=== PATIENT | female | born 1990 | race Caucasian/White ===

== ENCOUNTER 2021-02-19 13:20 | Outpatient (CLI) | payer OTHER, SELFPAY ==
--- NOTE | ~2021-02-19 | US_ITS ---
EXAMINATION: US pelvic complete w TV EXAM DATE: 02/19/2021 13:55 INDICATION: Right ovarian cyst seen on outside CT one-2 weeks ago. TECHNIQUE: Pelvic transabdominal and transvaginal sonogram was performed. There are multiple graysca le and Doppler images available for interpretation. There is no prior study for comparison. FINDINGS: Uterus is not identified. No free pelvic fluid. Right adnexa: The ovary measures 6.4 x 3.5 x 3.6 cm, with a complex cystic lesion measuring 3.9 x 3.5 x 3.5 cm, fishnet appearance is most consistent with a hemorrhagic cyst. No internal vascularity dem onstrated within this complex cystic region. Differential diagnosis includes endometrioma, teratoma, other cystic ovarian neoplasm. Ovarian vascular flow confirmed. Left adnexa: The ovary measures 2.7 x 1.4 x 1.7 cm and is morphologically normal. Ovarian vascular fl ow confirmed. IMPRESSION: Right ovarian complex cystic lesion most likely hemorrhagic cyst. Follow-up pelvic sonogr am in 6-12 weeks recommended to exclude cystic ovarian neoplasm. Reviewed, dictated and finalized at location A. IMPRESSION: Right ovarian complex cystic lesion most likely hemorrhagic cyst. F ollow-up pelvic sonogram in 6-12 weeks recommended to exclude cystic ovarian ne oplasm.
== END 2021-02-19 13:21 | disposition home or self-care (01) ==
LOC: CHSIMG 13:23
PROVIDERS: PCP Family Medicine; Visit Provider Nurse Practitioner Psychiatric/Mental Health
DX: N83.201 Unspecified ovarian cyst, right side (principal)
CPT/HCPCS: 76830; 76856

== ENCOUNTER 2023-01-30 08:24 | Outpatient (CLI) | payer OTHER, SELFPAY ==
--- NOTE | ~2023-01-30 | US_ITS ---
EXAMINATION: US pelvic complete w TV DATE: 01/30/2023 09:03 INDICATION: Right-sided pelvic pain Comparison:Ultrasound dated 02/19/2021 TECHNIQUE: Multiple transabdominal and endovaginal sonographic images of the pelvis performed. FINDINGS: The uterus is surgically absent. The ovaries are not visualized. There is no free fluid in the pelvis. There are no abnormal masses seen on either side. IMPRESSION: 1. Unremarkable pelvic ultrasound. Reviewed, dictated and finalized at location L.
== END 2023-01-30 08:25 | disposition home or self-care (01) ==
LOC: CHSIMG 08:27
PROVIDERS: PCP Family Medicine; Visit Provider Family Medicine
DX: R10.2 Pelvic and perineal pain (principal)
CPT/HCPCS: 76830; 76856

== ENCOUNTER 2024-09-09 07:56 | Outpatient (CLI) | payer OTHER, SELFPAY ==
--- NOTE | ~2024-09-09 | US_ITS ---
EXAMINATION: US transvaginal DATE: 09/09/2024 08:34 INDICATION: Cyst of ovary. TECHNIQUE: Multiple transvaginal sonographic images of the pelvis were obtained. COMPARISON: Ultrasound 01/30/2023 FINDINGS: The uterus is absent. There is no free fluid in the pelvis. The ovaries are not visualized. IMPRESSION: 1. Ovaries not visualized. 2. Absent uterus. Reviewed, dictated and finalized at location A. [employer]
--- OUTSIDE RECORDS SUMMARY | 2024-09-09 08:06 | XMS_ITS | Clinical Summary ---
Author Organization [facility] Address [address] [place] [address]. [place], [place] [id number] [place] [address] Care Team Providers Care Project Management Professor Name Role Phone Terrence Oliver MD Primary Care Provider [phone] Allergies Active Allergy Reactions Criticality Noted Date Comments Codeine Chest pressure 02/08/2021 Medications No known medications Social History Tobacco Use Types Packs/Day Years Used Date Smoking Tobacco: Every Day Cigarettes Smokeless Tobacco: Never Alcohol Use Standard Drinks/Week Comments Never 0 (1 standard drink = 0.6 oz pur e alcohol) AUDIT-C Answer Date Recorded Q1: How often do you have a drink containing alc ohol? 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 Gender Identity Not on file Sexual Orientation Not on file Last Filed Vital Signs Vital Sign Reading Time Taken Comments Blood Pressure 117/61 10/10/2022 11:30 AM LEATHER GOODS ASSEMBLER Pulse 56 10/10/2022 11:30 AM LEATHER GOODS ASSEMBLER Temperature 36.4 ??C (97.6 ??F) 10/10/2022 8:25 AM CS T Respiratory Rate 16 10/10/2022 11:30 AM LEATHER GOODS ASSEMBLER Oxygen Saturation 99% 10/10/2022 11:30 AM LEATHER GOODS ASSEMBLER Inhaled Oxygen Concentration - - Weight 59 kg (130 lb) 10/10/2022 8:25 AM LEATHER GOODS ASSEMBLER Height 160 cm (5' 3 ) 10/10/2022 8:25 AM LEATHER GOODS ASSEMBLER Body Mass Index 23.03 10/10/2022 8:25 AM LEATHER GOODS ASSEMBLER Plan of Treatment Health Maintenance Due Date Last Done Comments Annual Physical 1992 Pneumococcal Vaccine: Pediatrics (0 to 5 Years) and At-Risk Patients (6 to 64 Years) (1 of 2 - PCV) 1995 Hepatitis C 2007 DTaP, Tdap and Td Vaccines (1 - Tdap) 2008 12/02/1994, 01/26/1991, 10/19/1990, Additional history exists Hepatitis B Vaccines (1 of 3 - 19+ 3-dose series) 2008 COVID-19 Vaccine (1 - season) 2024 Influenza Adult (#1) 2024 HPV Vaccines Aged Out No longer eligi ble based on patient's age to complete this topic Meningococcal B Vaccine Aged Out No l onger eligible based on patient's age to complete this topic Meningococcal Vaccine Aged Out No tracy olga eligible based on patient's age to complete this topic RSV Immunizations Under 20 Months Aged Out No longer eligible based on patient's age to complete this topic [place] [address] [place] [address] Care Teams Project Management Professor Relationship Specialty Start Date End Date Terrence Oliver MD [address] [place] [phone] PCP - General FAMILY PRACTICE 02/08/21
--- OUTSIDE RECORDS SUMMARY | 2024-09-09 08:06 | XMS_ITS | Clinical Summary ---
Author Organization [facility] Address [address] [place] [address] Care Team Providers Care Construction Skills Teacher Name Role Phone Miscellaneous, Not In File Primary Care Provider Unavailable Allergies Active Allergy Reactions Criticality Noted Date Comments Codeine Chest tightness Medium 01/04/2022 Medications clobetasol (TEMOVATE) 0.05 % cream apply by topical route 2 times every day a thin layer to the affected area(s) 15 1 7 Active ibuprofen (ADVIL,MOTRIN) 600 mg tablet Take 1 tablet (600 mg total) by mouth 4 (four) times a day as needed for pain Take with food. 30 tablet 2 Active ondansetron ODT (ZOFRAN-ODT) 4 mg disintegrating tablet Dissolve 1 tablet for mild to moderate nausea or vomiting or 2 tablets for severe nausea or vomiting oral twice a day as needed. 15 tablet 2 Active Active Problems No known active problems Surgical History Surgery Date Site/Laterality Comments ESSURE TUBAL LIGATION 08/11/2011 - 08/10/2012 APPENDECTOMY 08/11/1996 - 08/10/1997 CERVICAL BIOPSY W/ LOOP ELECTRODE EXCISION 08/11/2014 - 08/10/2015 SMITH II on cervical biopsy: LEEP conization: SMITH III without clear margins LAPAROSCOPIC CHOLECYSTECTOMY 08/11/2010 - 08/10/2011 LAPAROSCOPIC TOTAL HYSTERECTOMY 08/11/2014 - 08/10/2015 with bilateral salpingectomy; done for cervical dysplasia HYSTERECTOMY partial age 23 Medical History Medical History Date Comments Chlamydia infection 2013 Exercise-induced asthma Abnormal Pap smear of cervix 2013 [facility] [place] on pap smear; SMITH I on biopsy Abnormal Pap smear of cervix 2014 SMITH II on cervical biopsy Abnormal Pap smear of cervix 2014 SMITH III of cervix without clear margins on LEEP Seasonal allergies Family History Medical History Relation Name Comments Hypertension Father Diabetes Maternal Grandfather Hypertension Maternal Grandfather Stroke Maternal Grandfather Ovarian cancer Mother Stroke Mother Relation Name Status Comments Father Maternal Grandfather Mother Social History Tobacco Use Types Packs/Day Years Used Date Smoking Tobacco: Heavy Smoker Cigarettes 1 20.1 Started: 2004 Smokeless Tobacco: Never Comments:Smoking History Pac ks/day: 0.5 Packs Alcohol Use Standard Drinks/Week Comments Yes 0 (1 standard drink = 0.6 oz pur e alcohol) social use Comments No Sex and Gender Information Value Date Recorded Sex Assigned at Not on file 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 Gender Identity Not on file Sexual Orientation Not on file Occupation Industry Job Start Date Job End Date sales Not on file Not on file Not on file Obstetrics History Para Term AB IAB SAB Ectopic Multiple Livin g Live Births 2 2 2 0 0 0 0 0 0 2 2 Date Outcome GA Total Labor Labor/2nd/3rd Weight Sex Type Anes PTL Chelita A1 A5 Name Clin Term Term Last Filed Vital Signs Vital Sign Reading Time Taken Comments Blood Pressure 117/55 01/04/2022 10:00 PM CDT Pulse 69 01/04/2022 10:00 PM CDT Temperature 37.1 ??C (98.7 ??F) 01/04/2022 2:45 PM CD T Respiratory Rate 18 01/04/2022 2:45 PM CDT Oxygen Saturation 97% 01/04/2022 10:00 PM CDT Inhaled Oxygen Concentration - - Weight 77.1 kg (170 lb) 01/04/2022 2:45 PM CDT Height 162.6 cm (5' 4 ) 11/20/2016 8:50 AM CDT Body Mass Index 29.18 11/20/2016 8:50 AM CDT Plan of Treatment Health Maintenance Due Date Last Done Comments Depression Screening 1989 Pneumococcal vaccine <65 (1 of 2 - PCV) 1995 DTaP/Tdap/Td Vaccine (1 - Tdap) 2000 Varicella Vaccines (1 of 2 - 13+ 2-dose series) 2002 Hepatitis B Screening 2007 Regular Well Visit/Exam 18-64 2007 Influenza Vaccine (#1) 2024 Cervical Cancer Screening Discontinued 2016, 07/30/2013 Hepatitis C Screening Completed 01/04/2022 HPV Vaccines Aged Out No longer eligi ble based on patient's age to complete this topic Procedures Procedure Name Priority Date/Time Associated Diagnosis Comments HEPATITIS PANEL, ACUTE Add-On 01/04/2022 9:52 PM CDT THINPREP IMAGING PAP REFLEX HPV MRNA E6/E7 Routine 11/20/2016 10:54 AM CDT from Last 3 Months or Most Recently Relevant to Health Maintenance Results * Hepatitis panel, acute (01/04/2022 9:52 PM CDT) Hep A IgM Nonreactive Nonreactive [facility] ([place]) Comment: Interpretive Data: If Hep A IgM Ab is reported as Equivocal, a new sample should be drawn in two weeks for testing. Current interpretive data was last revised on 19. Testing performed by: [facility], [address] [place] [address]., [id number] Hep B core IgM Nonreactive Nonreactive [facility] ([place]) Comment: Interpretive Data If HepB Core IgM Ab is reported as Equivocal, a new sample should be drawn in two weeks for testing. Current interpretive data was last revised on 19. Testing performed by: [facility], [address] [place] [address]., [id number] Hep C Ab Nonreactive Nonreactive [facility] ([place]) Comment: Interpretive Data Nonreactive: Antibodies to HCV not detected. Does NOT exclude the possibility of recent exposure to HCV. Equivocal: Equivocal for HCV antibodies. Supplemental molecular testing will be automatically performed to determine infection status in accordance with current CDC screening recommendations. ?? Reactive: Positive for HCV antibodies. ??This may represent current or past HCV infection. Supplemental molecular testing will be automatically performed to determine ??current infection status in accordance with current CDC screening recommendations. Interpretive data was last revised on 2019. Testing performed by: [facility], [address] [place] [address]., [id number] HepBsAg Nonreactive Nonreactive [facility] ([place]) Comment:Testing performed by : [facility] [id number] [place]., [address] Blood 01/04/2022 9:52 PM CDT 01/05/2022 1:52 PM CDT us Marlys Armendariz MD LAB MICROBIOLOGY - GENERAL ORDERABLES Final Result [facility] ([place]) 1 [facility] [place] [address] * ThinPrep Imaging Pap Reflex HPV mRNA E6/E7 (11/20/2016 10:54 AM CDT) SOURCE: SEE NOTE [facility] Comment:Vagina CLINICAL INFORMATION: SEE NOTE [facility] Comment: High risk HPV Hx/Rx Hysterectomy, total LMP SEE NOTE [facility] Comment:NONE GIVEN Previous Pap SEE NOTE [facility] RESULTS Comment:NONE GIVEN Prev. Bx SEE NOTE [facility]ULTS Comment:NONE GIVEN Pap, specimen adequacy SEE NOTE [facility] Comment:SATISFACTORY FOR TOREY LUATION HPV interp SEE NOTE [facility] Comment:Negative for intraep ithelial lesion or malignancy. Lactobacillus species SEE NOTE [facility] Comment: This Pap test has been evaluated with computer assisted technology. System Administration Manager SEE NOTE [facility] RESULTS Comment: MVB, CT(ASCP) CT screening location: [address] [place] ? [address] Review senior project architect SEE NOTE [facility] RESULTS Comment: ABC, CT(ASCP) CT screening location: [address] [place] [address] Test performed at [facility] ??[phone] Director: WAGNER TOBAR MD Infection: SEE NOTE [facility] RESULTS Comment: Fungal organisms morphologically consistent with Deanne spp. 11/20/2016 10:5 4 AM CDT us Jennifer Lagunas MD LAB PATHOLOGY ORDER MARRY Final Result [facility] RES[facility] from Last 3 Months or Most Recently Relevant to Health Maintenance Insurance Care Teams Construction Skills Teacher Relationship Specialty Start Date End Date Miscellaneous, Not In File PCP - General 01/04/22
--- OUTSIDE RECORDS SUMMARY | 2024-09-09 08:06 | XMS_ITS | Encounter Summary ---
Author Organization [facility] Address [address] [place] [address]. 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
--- OUTSIDE RECORDS SUMMARY | 2024-09-09 08:07 | XMS_ITS | Referral Summary ---
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 Gender Identity Not on file Sexual Orientation Not on file Occupation Industry Job Start Date Job End Date sales Not on file Not on file Not on file Last Filed Vital Signs [...] 11/20/2016 8:50 AM CDT Plan of Treatment Not on file Procedures Procedure Name Priority Date/Time Associated Diagnosis Comments HEPATITIS PANEL, ACUTE Add-On 01/04/2022 9:52 PM CDT THINPREP IMAGING PAP REFLEX HPV MRNA E6/E7 Routine 11/20/2016 10:54 AM CDT from Last 3 Months or Most Recently Relevant to Health Maintenance Results * Hepatitis panel, acute (01/04/2022 9:52 PM CDT) Hep A IgM Nonreactive Nonreactive [facility] ([place]) Comment: Interpretive Data: If Hep A IgM Ab is reported as Equivocal, a new sample should be drawn in two weeks for testing. Current interpretive data was last revised on 19. Testing performed by: [facility], [address] [place] [address]., [id number] Hep B core IgM Nonreactive Nonreactive [facility] ([place]) Comment: Interpretive Data If HepB Core IgM Ab is reported as Equivocal, a new sample should be drawn in two weeks for testing. Current interpretive data was last revised on 19. Testing performed by: [facility], [address] [place] [address]., [id number] Hep C Ab Nonreactive Nonreactive [facility] ([place]) Comment: Interpretive Data Nonreactive: Antibodies to [...] last revised on 2019. Testing performed by: [facility], [address] [place] [address]., [id number] HepBsAg Nonreactive Nonreactive [facility] ([place]) Comment:Testing performed by : [facility], [address] [place] [address]., [id number] Blood 01/04/2022 9:52 PM CDT 01/05/2022 1:52 PM CDT us Marlys Armendariz MD LAB MICROBIOLOGY - GENERAL ORDERABLES Final Result [facility] ([place]) 1 [facility] Department [place] [address] * ThinPrep Imaging Pap Reflex HPV mRNA [...] has been evaluated with computer assisted technology. Rand Sewer SEE NOTE [facility] RESULTS Comment: [facility], CT(ASCP) CT screening location: [place] [address] Administration [place] ? [address] Review truck driver flatbed SEE NOTE [facility] RESULTS Comment: ABC, CT(ASCP) CT screening location: [address] [place] [address] Test performed at [facility] ??[phone] Director: WAGNER TOBAR MD Infection: SEE NOTE [facility] Comment: Fungal organisms morphologically consistent with Deanne spp. 11/20/2016 10:5 4 AM CDT Jennifer Lagunas MD LAB PATHOLOGY ORDER MARRY Final Result [facility] RESULTS from Last 3 Months or Most Recently Relevant to Health Maintenance Insurance Care Teams Operations Supervisor 2Nd Shift Relationship Specialty Start Date End Date Miscellaneous, Not In File PCP - General 01/04/22
[2024-09-09 08:18] LABS: Basophils Absolute Auto 0.05 K/mm3 (0.00-0.10); Eosinophils Absolute Auto 0.06 K/mm3 (0.02-0.50); Eosinophils Percent Auto 1.2 % (1.0-6.0); Hematocrit 45.2 % (35.0-49.0); Immature Granulocyte Absolute 0.01 K/mm3 (0.00-0.00); Immature Granulocyte Percent A 0.2 % (0.0-0.0); Lymphocytes Absolute Auto 1.11 K/mm3 (1.10-4.50); Lymphocytes Percent Auto 22.1 % (18.0-42.0); Mean Corpuscular HGB Conc 33.2 g/dL (32-36); Mean Corpuscular Hemoglobin 30.5 pg (27.0-31.0); Mean Corpuscular Volume 92.1 fL (78.0-102.0); Mean Platelet Volume 10.5 fl (9.2-11.8); Monocytes Percent Auto 9.9 % (2.0-11.0); Neutrophils Percent Auto 65.6 % (50.0-70.0); Platelet Count Result 245 K/mm3 (150-420); Red Blood Count 4.91 M/mm3 (4.20-5.40); Red Cell Distribution Width 11.9 % (11.6-14.4)
[2024-09-09 09:00] LABS: Alanine Aminotransferase 28 U/L (14-59); Albumin Level 3.8 g/dL (3.4-5.0); Alkaline Phosphatase 63 U/L (46-116); Anion Gap 6 mmol/L (4-12); Aspartate Amino Transferase 26 U/L (15-37); Bilirubin,Total 0.4 mg/dL (0.00-1.00); Blood Urea Nitrogen 5 mg/dL (7-18); Calcium 8.9 mg/dL (8.5-10.1); Carbon Dioxide 28 mmol/L (21-32); Chloride 106 mmol/L (98-108); Estimated Glomerular Filt Rate > 60; Glucose 84 mg/dL (70-99); Osmolality Calculated 286 mOsm/kg (285-295); Potassium 3.9 mmol/L (3.5-5.1); Sodium 140 mmol/L (136-145); Total Protein 6.8 g/dL (6.4-8.2)
[2024-09-10 07:58] LABS: Free T3 2.88 pg/mL (2.18-3.98)
[2024-09-11 04:24] LABS: Sex Hormone Binding Globulin 155 nmol/L (17-124)
[2024-09-11 06:33] LABS: T4 Thyroxine 7.9 mcg/dL (5.1-11.9)
[2024-09-11 06:39] LABS: DHEA-Sulfate 165 mcg/dL (19-237); FSH 7.1 mIU/mL; Vitamin D 25 Hydroxy 20 ng/mL (30-100)
== END 2024-09-09 07:57 | disposition home or self-care (01) ==
LOC: CHSLAB 08:02
PROVIDERS: PCP Registered Nurse; Visit Provider Registered Nurse
DX: R79.89 Other specified abnormal findings of blood chemistry (principal); E55.9 Vitamin D deficiency, unspecified; Z90.710 Acquired absence of both cervix and uterus
CPT/HCPCS: 36415; 76830; 80053; 82306; 82627; 82670; 83001; 84270; 84402; 84403; 84436; 84443; 84480; 84481; 85025

== ENCOUNTER 2025-01-19 21:16 | Emergency (ER) | payer OTHER, SELFPAY ==
--- NOTE | ~2025-01-19 | XR_ITS ---
XR foot RT min 3V Ordering provider: Joe Luna MD History: . 1/2 weeks. This toes bruising . Comparison: None. FINDINGS: BONES: No acute fracture or dislocation. JOINT SPACES: Normal. No tarsal coalition. SOFT TISSUES: Normal. IMPRESSION: No acute osseous abnormality of the right foot. Reviewed, dictated and finalized at location A.
--- OUTSIDE RECORDS SUMMARY | 2025-01-19 21:17 | XMS_ITS | Clinical Summary ---
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 Gender Identity Not on file Sexual Orientation [...] 69 01/04/2022 10:00 PM CDT Temperature 37.1 C (98.7 F) 01/04/2022 2:45 PM CDT Respiratory Rate 18 01/04/2022 2:45 PM CDT Oxygen Saturation 97% 01/04/2022 10:00 PM CDT Inhaled Oxygen Concentration - - Weight 77.1 kg (170 lb) 01/04/2022 2:45 PM CDT Height 162.6 cm (5' 4) 11/20/2016 8:50 AM CDT Body Mass Index 29.18 11/20/2016 8:50 AM CDT Plan of Treatment Not on file Insurance [facility] [place] [address] [place] [address] Care Teams Director Digital Catalogue Relationship Specialty Start Date End Date Miscellaneous, Not In File PCP - General 01/04/22
[2025-01-19 21:18] VITALS: BP 135/74; PULSE 82; RESP 18; TEMP 36.5; O2SAT 99
--- OUTSIDE RECORDS SUMMARY | 2025-01-19 21:18 | XMS_ITS | Referral Summary ---
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
--- NOTE | 2025-01-19 21:24 | ED_ITS ---
HPI - Extremity Injury (Lower) General Chief Complaint: Extremity Injury, Lower Stated Complaint: lower extremity injury Time Seen by Provider: 01/19/25 21:23 Source: patient Mode of arrival: ambulatory Limitations: no limitations History of Present Illness HPI Narrative: 34 old female was on a water slide when her right foot slipped forwards. She sustained bruising of the 1st/ 2nd/ 3rd toes. She presents with pain and swelling of the 1st and 2nd toes. She is able to bear weight. No other injuries noted. complaint: foot injury Onset (ago): day(s) ( One day) Injury: Right: foot Type of Injury: hyperextension Place: street/outdoors Severity: mild Relieving factors: nothing Exacerbating factors: nothing Other symptoms: none Related Data Home Medications ?Medication ?Instructions ?Recorded ?Confirmed ?Last Taken ?Type No Home Medications 01/19/25 01/19/25 Unknown History Allergies Allergy/AdvReac Type Severity Reaction Status Date / Time codeine Allergy palpitation Verified 01/19/25 21:33 Review of Systems Review of Systems: All systems reviewed & are unremarkable except as noted in HPI and below [facility] Surgical History Surgical History (Updated 01/19/25 @ 21:28 by Joe Luna MD) H/O: hysterectomy Exam Narrative: vitals are stable Const: General: no acute distress Orientation/consciousness: patient oriented x3 Limitations: no limitations HENMT: Head: normal to inspection Ears: external ears normal Face/Nose/Sinus: Normal external nose present Face and sinus: normal facial exam Mouth: Yes Normal oral and palatal mucosa present Throat: posterior oropharynx normal Eyes: Conjunctivae: conjunctivae normal Pupils: Equal, round and reactive pupils present EOM: EOMs intact bilaterally Direct Ophthalmoscopy: no photophobia Neck: Neck: normal visual inspection, no lymphadenopathy and no meningeal signs Chest: Chest palpation & inspection: normal inspection of the chest Resp: Effort & Inspection: normal respiratory effort Auscultation: clear to auscultation bilaterally Cardio: Rate: regular rate Rhythm: regular rhythm GI: GI Palp: Yes Soft to palpation Auscultation: normal bowel sounds : General: Yes no CVA tenderness Back/Spine/Pelvis: Back: no CVA tenderness Skin: General skin exam: normal color Rashes: no rashes Neuro: General: patient oriented x3, moves all extremities, no meningeal signs, no focal motor deficits and CN's II-XI intact bilaterally Speech: normal speech Extrem: Other: right foot-- 1st, 2nd and 3rd toes swelling with bruising. tender on pal pation. No tenderness of MP joints. Psych: Mental Status: mental status grossly normal Affect: normal affect Attitude: cooperative Course Course Emergency Course: bruising of the 1st/2nd/3rd toes of the right leg. X-ray did not show any fracture/dislocation. Vital Signs Vital signs: Vital Signs Temperature 36.5 C 01/19/25 21:18 Pulse Rate 82 01/19/25 21:18 Respiratory Rate 18 01/19/25 21:18 Blood Pressure 135/74 01/19/25 21:18 Pulse Oximetry 99 01/19/25 21:18 Oxygen Delivery Room Air 01/19/25 21:18 Temperature 36.5 C 01/19/25 21:18 Pulse Rate 82 01/19/25 21:18 Respiratory Rate 18 01/19/25 21:18 Blood Pressure 135/74 01/19/25 21:18 Pulse Oximetry 99 01/19/25 21:18 Oxygen Delivery Room Air 01/19/25 21:18 MDM - Extremity Injury (Lower) MDM Narrative Medical decision making narrative: Contusion of right foot toes Differential Diagnosis Differential diagnosis: Likely ankle sprain and strain Lab Data Attestation: I reviewed the patient's lab results. Discharge Plan Discharge Clinical Impression: Contusion, toes Qualifiers: Encounter type: initial encounter Toe: great toe Damage to nail status: without damage Laterality: right Qualified Code(s): S90.111A - Contusion of right great toe without damage to nail, initial encounter Patient Disposition: Home Condition: Stable Instructions: Antibiotic Form, Foot Contusion (ED) Patient Language: Pashto Prescriptions: No Action No Home Medications Follow-up/Referrals: Benito,MD Terrence [Primary Care Provider] - Time of Disposition: 22:10
--- OUTSIDE RECORDS SUMMARY | 2025-01-19 22:04 | XMS_ITS | Clinical Summary ---
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
--- OUTSIDE RECORDS SUMMARY | 2025-01-19 22:04 | XMS_ITS | Referral Summary ---
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
[2025-01-19] MEDS: TETANUS,DIPHTHERIA,AC PERTUSSIS ADULT 0.5 ML (ADACEL) IM (22:16)
== END 2025-01-19 22:25 | disposition home or self-care (01) ==
PROVIDERS: Emergency Provider Internal Medicine Critical Care Medicine; PCP Family Medicine
DX: S90.111A Contusion of right great toe without damage to nail, initial encounter (principal); Z23 Encounter for immunization; X50.0XXA Overexertion from strenuous movement or load, initial encounter
CPT/HCPCS: 73630; 90471; 90715; 99283

== ENCOUNTER 2025-02-21 11:02 | Outpatient (CLI) | payer OTHER, SELFPAY ==
--- OUTSIDE RECORDS SUMMARY | 2025-02-21 11:15 | XMS_ITS | Referral Summary ---
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
--- OUTSIDE RECORDS SUMMARY | 2025-02-21 11:15 | XMS_ITS | Clinical Summary ---
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
[2025-02-21 11:42] LABS: Hematocrit 45.9 % (35.0-49.0); Hemoglobin 15.3 g/dL (12.0-15.0); Immature Granulocyte Percent A 0.2 % (0.0-0.0); Lymphocytes Absolute Auto 1.56 K/mm3 (1.10-4.50); Mean Corpuscular HGB Conc 33.3 g/dL (32-36); Mean Corpuscular Hemoglobin 30.9 pg (27.0-31.0); Mean Corpuscular Volume 92.7 fL (78.0-102.0); Nucleated Red Blood Cells Absolute Auto 0.00 K/mm3 (0.00-0.00); Nucleated Red Blood Cells Perc 0.0 % (0-0.0); Platelet Count Result 276 K/mm3 (150-420); Red Blood Count 4.95 M/mm3 (4.20-5.40); White Blood Count 5.3 K/mm3 (4.8-10.8)
[2025-02-21 12:28] LABS: Alanine Aminotransferase 23 U/L (6-35); Albumin Level 3.7 g/dL (3.5-5.1); Alkaline Phosphatase 60 U/L (38-126); Anion Gap 0 mmol/L (4-12); Aspartate Amino Transferase 35 U/L (14-36); Bilirubin,Total 0.6 mg/dL (0.2-1.3); Blood Urea Nitrogen 6 mg/dL (7-17); Calcium 9.2 mg/dL (8.4-10.2); Carbon Dioxide 28 mmol/L (22-30); Chloride 109 mmol/L (98-107); Cholesterol 158 mg/dL (0-200); Estimated Glomerular Filt Rate > 60; Glucose 92 mg/dL (65-110); HDL Direct 52 mg/dL; Osmolality Calculated 281 mOsm/kg (285-295); Potassium 4.4 mmol/L (3.4-5.0); Sodium 137 mmol/L (137-145); Total Protein 6.3 g/dL (6.3-8.2); Triglycerides 125 mg/dL (<150)
[2025-02-21 12:51] LABS: Thyroid Stimulating Hormone 0.624 uIU/mL (0.465-4.680)
[2025-02-21 13:26] LABS: Vitamin B12 817.0 pg/mL (239-931)
== END 2025-02-21 11:03 | disposition home or self-care (01) ==
PROVIDERS: PCP Registered Nurse; Visit Provider Registered Nurse
DX: E55.9 Vitamin D deficiency, unspecified (principal); Z13.220 Encounter for screening for lipoid disorders; R53.83 Other fatigue
CPT/HCPCS: 36415; 80053; 80061; 82306; 82607; 82746; 84443; 85025

== ENCOUNTER 2025-05-28 10:08 | Outpatient (CLI) | payer OTHER, SELFPAY ==
--- OUTSIDE RECORDS SUMMARY | 2025-05-28 10:12 | XMS_ITS | Clinical Summary ---
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
--- OUTSIDE RECORDS SUMMARY | 2025-05-28 10:12 | XMS_ITS | Clinical Summary ---
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 Gender Identity Not on file Sexual Orientation Not on file Last Filed Vital Signs Vital Sign Reading Time Taken Comments Blood Pressure 117/61 10/10/2022 11:30 AM INSTRUCTIONAL TECHNOLOGY FACILITATOR Pulse 56 10/10/2022 11:30 AM INSTRUCTIONAL TECHNOLOGY FACILITATOR Temperature 36.4 C (97.6 F) 10/10/2022 8:25 AM INSTRUCTIONAL TECHNOLOGY FACILITATOR Respiratory Rate 16 10/10/2022 11:30 AM INSTRUCTIONAL TECHNOLOGY FACILITATOR Oxygen Saturation 99% 10/10/2022 11:30 AM INSTRUCTIONAL TECHNOLOGY FACILITATOR Inhaled Oxygen Concentration - - Weight 59 kg (130 lb) 10/10/2022 8:25 AM INSTRUCTIONAL TECHNOLOGY FACILITATOR Height 160 cm (5' 3) 10/10/2022 8:25 AM INSTRUCTIONAL TECHNOLOGY FACILITATOR Body Mass Index 23.03 10/10/2022 8:25 AM INSTRUCTIONAL TECHNOLOGY FACILITATOR Plan of Treatment Health Maintenance Due Date Last Done Comments Annual Physical 1992 Hepatitis C 2007 DTaP, Tdap and Td Vaccines (1 - Tdap) 2008 12/02/1994, 01/26/1991, 10/19/1990, Additional history exists Hepatitis B Vaccines (1 of 3 - 19+ 3-dose series) 2008 Pneumococcal Vaccine: Pediatrics (0 to 5 Years) and At-Risk Patients (6 to 49 Years) (1 of 2 - PCV) 2008 HPV Vaccines (1 - 3-dose SCDM series) 2016 COVID-19 Vaccine (1 - season) 2025 Influenza Adult (#1) 2025 Hepatitis A Vaccines Aged Out No long er eligible based on patient's age to complete this topic Meningococcal B Vaccine Aged Out No l onger eligible based on patient's age to complete this topic Meningococcal Vaccine Aged Out No tracy olga eligible based on patient's age to complete this topic RSV Immunizations Under 20 Months Aged Out No longer eligible based on patient's age to complete this topic [place] [address] [place] [address] Care Teams Problem Manager Relationship Specialty Start Date End Date Terrence Oliver MD [address] [place] [id number] PCP - General FAMILY PRACTICE 02/08/21
--- OUTSIDE RECORDS SUMMARY | 2025-05-28 10:12 | XMS_ITS | Data Portability ---
Author Organization [facility] ARCHIELobito Address [address] [place] [address] Care Team Providers Care Executive Sales Assistant Name Role Phone SAW REYES Primary Care Provider [phone] Assessment No assessment recorded. Plan of Treatment Reminders Order Date Submit Date Provider Last Modified By Organization Details Last Modified Time Details Appointments None recorded. Lab CBC 2016 017 [facility], [address] [place] [address], [facility] [address], [place], [address], 7 07:14:26 CMP, serum or plasma 2016 017 [facility], [address] [facility], [address], [place], [address], 7 07:14:26 lipid panel, serum 2016 017 [facility], [address] [place] [address], [facility] [address], [place], [address], 7 07:14:27 TSH + free T4, serum 2016 017 [facility], [address] [facility], [address], [place], [address], 7 07:14:26 Referral None recorded. Procedures None recorded. Surgeries None recorded. Imaging holter monitor 2016 017 leah Driver (Radiology), [address] [facility], [address], 7 17:52:21 Medication Orders omeprazol e 40 mg capsule,d elayed release [address] [facility], [address] [place] [address], [address], 7 12:41:51 Keflex 500 mg capsule 2016 017 [facility], [address] [place] [address], [address], 7 11:14:54 ketorolac 60 mg/2 mL intramusc ular solution 2016 017 [facility] Not available 11:14:52 tramadol 50 mg tablet 2016 017 [facility], [address] [place] [address], [address], 7 11:14:49 Keflex 500 mg capsule 2016 017 [facility], [address] [place] [address], [address], 7 11:14:54 Patient TargetsNo targets recorded. Patient Instructions Encounter Date Encounter Id Patient Instructions Last Modified By Organization Details Last Modified Time 11/06/2016 [id number] sleep study, diagnostic* jnanney Not available 11/06/2016 11:04:32 11/12/2016 [id number] cardiac arrhythmia: care instructions Not available 11/12/2016 17:43:41 01/27/2017 [id number] abscessed tooth: care instructions [email or web address] Not available 01/27/2017 12:59:38 Reason for Referral None Reported. Results Created Date Observation Date Name Description Value Unit Range Abnormal Flag Note LastModifiedBy Organization Detail LastModifiedTime 11/07/19 17 11/07/2016 TSH + free T4, serum TSH 1.850 uIU/m L 0.450- 4.500 Not Available [facility] ([facility]) [address] [facility], [place], [address], 11/07/2016 07:14:26 11/07/19 17 11/07/2016 TSH + free T4, serum T4,free(dire ct) 1.08 NG/dL 0.82-1 .77 Not Available [facility] ([facility]) [address] [facility], [place], [address], 11/07/2016 07:14:26 11/07/19 17 11/07/2016 CBC WBC 4.9 x10e3 /uL 3.4-10 .8 Not Available [facility] ([facility]) [address] [facility] [place], [address], 11/07/2016 07:14:26 11/07/19 17 11/07/2016 CBC RBC 4.56 x10e6 /uL 3.77-5 .28 Not Available [facility] ([facility]) [address] [facility], [place], [address], 11/07/2016 07:14:26 11/07/19 17 11/07/2016 CBC hemoglobin 14.0 g/dL 11.1-1 5.9 Not Available [facility] ([facility]) [address] [facility], [place], [address], 11/07/2016 07:14:26 11/07/19 17 11/07/2016 CBC hematocrit 41.8 % 34.0-4 6.6 Not Available [facility] ([facility]) [address] [place], [address], 11/07/2016 07:14:26 11/07/19 17 11/07/2016 CBC MCV 92 fL 79-97 Not Available [facility] ([facility]) [address] [place], [address], 11/07/2016 07:14:26 11/07/19 17 11/07/2016 CBC MCH 30.7 pg 26.6-3 3.0 Not Available [facility] ([facility]) [address] [facility], [place], [address], 11/07/2016 07:14:26 11/07/19 17 11/07/2016 CBC MCHC 33.5 g/dL 31.5-3 5.7 Not Available [facility] ([facility] [address] [facility] [place], [address], 11/07/2016 07:14:26 11/07/19 17 11/07/2016 CBC RDW 13.1 % 12.3-1 5.4 Not Available [facility] ([facility]) [address], [place], [address], 11/07/2016 07:14:26 11/07/19 17 11/07/2016 CBC platelets 240 x10e3 /uL 150-37 9 Not Available [facility] ([facility]) [address] [facility], [place], [address], 11/07/2016 07:14:26 11/07/19 17 11/07/2016 CBC neutrophils 61 % Not Avai lable [facility] ([facility]) [address] [facility] [place], [address], 11/07/2016 07:14:26 11/07/19 17 11/07/2016 CBC lymphs 29 % Not Available [facility] ([facility]) [address] [facility], [place], [address], 11/07/2016 07:14:26 11/07/19 17 11/07/2016 CBC monocytes 9 % Not Availa ble [facility] ([facility]) [address] [facility] [place] [place], [address], 11/07/2016 07:14:26 11/07/19 17 11/07/2016 CBC eos 1 % Not Available [facility] ([facility]) [address] [facility] [place] [place], [address], 11/07/2016 07:14:11/07/19 17 11/07/2016 CBC basos 0 % Not Available [facility] ([facility]) [address] [facility], [place], [address], 11/07/2016 07:14:11/07/19 17 11/07/2016 CBC immature cells WILDLIFE MANAGEMENT PROFESSOR Not Available [facility] ([facility]) [address] [facility], [place], [address], 11/07/2016 07:14:11/07/19 17 11/07/2016 CBC neutrophils (absolute) 3.0 x10e3 /uL 1.4-7. 0 Not Available [facility] ([facility]) [address] [facility], [place], [address], 11/07/2016 07:14:11/07/19 17 11/07/2016 CBC lymphs (absolute) 1.4 x10e3 /uL 0.7-3. 1 Not Available [facility] ([facility]) [address] [facility], [place], [address], 11/07/2016 07:14:11/07/19 17 11/07/2016 CBC monocytes(ab solute) 0.4 x10e3 /uL 0.1-0. 9 Not Available [facility] ([facility]) [address] [facility], [place], [address], 11/07/2016 07:14:11/07/19 17 11/07/2016 CBC eos (absolute) 0.0 x10e3 /uL 0.0-0. 4 Not Available [facility] ([facility]) [address] [facility], [place], [address], 11/07/2016 07:14:11/07/1911/07/2016 CBC baso (absolute) 0.0 x10e3 /uL 0.0-0. 2 Not Available [facility] ([facility]) [address] [facility], [place], [address], 11/07/2016 07:14:11/07/19 17 11/07/2016 CBC immature granulocytes 0 % Not Available [facility] ([facility]) [address] [facility] [place], [address], 11/07/2016 07:14:11/07/19 17 11/07/2016 CBC immature grans (abs) 0.0 x10e3 /uL 0.0-0. 1 Not Available [facility] ([facility]) [address] [facility] [place], [address], 11/07/2016 07:14:11/07/19 17 11/07/2016 CBC NRBC WILDLIFE MANAGEMENT PROFESSOR Not Available [facility] ([facility]) [address] [place], [address], 11/07/2016 07:14:11/07/19 17 11/07/2016 CBC hematology comments: WILDLIFE MANAGEMENT PROFESSOR Not Available [facility] ([facility]) [address] [place], [address], 11/07/2016 07:14:11/07/19 17 11/07/2016 CMP, serum or plasm a glucose, serum 84 mg/dL 65-99 Not Available [facility] ([facility]) [address] [place], [address], 11/07/2016 07:14:11/07/19 17 11/07/2016 CMP, serum or plasm a BUN 7 mg/dL 6-20 Not Available [facility] ([facility]) [address] [place], [address], 11/07/2016 07:14:11/07/19 17 11/07/2016 CMP, serum or plasm a creatinine, serum 0.67 mg/dL 0.57-1 .00 Not Available [facility] ([facility]) [address] [place], [address], 11/07/2016 07:14:11/07/19 17 11/07/2016 CMP, serum or plasm a eGFR if nonafricn AM 121 mL/mi n/1.7 3 >59 Not Available [facility] ([facility]) [address] [place], [address], 11/07/2016 07:14:26 11/07/19 17 11/07/2016 CMP, serum or plasm a eGFR if africn AM 139 mL/mi n/1.7 3 >59 Not Available [facility] ([facility]) [address] [facility], [place], [address], 11/07/2016 07:14:26 11/07/19 17 11/07/2016 CMP, serum or plasm a BUN/creatini ne ratio 10 8-20 EFF ECTIV E NOVEMBER 11, 2016 BUN/C REATI NINE RATIO REFER ENCE INTER MEENA WILL BE POWLEL ING TO: AGE MALE FEMAL E 0 DAYS - 7 DAYS 9 - 25 9 - 26 8 DAYS - 30 DAYS 8 - 32 10 - 33 1 MONTH - 6 MONTH S 11 - 57 11 - 54 7 MONTH S - 1 YEAR - 71 20 - 71 2 YEARS - 5 YEARS 19 - 51 19 - 49 6 YEARS - 12 YEARS 14 - 34 13 - 32 13 YEARS - 17 YEARS 10 - 22 10 - 22 18 YEARS - 59 YEARS 9 - 20 9 - 23 >59 YEARS 10 - 24 12 - 28 Not Available [facility] ([facility]) [address] [facility], [place], [address], 11/07/2016 07:14:26 11/07/19 17 11/07/2016 CMP, serum or plasm a sodium, serum 141 mmol/ L 134-14 4 Not Available [facility] ([facility] [facility]) [address] [place], [address], 11/07/2016 07:14:26 11/07/19 17 11/07/2016 CMP, serum or plasm a potassium, serum 4.7 mmol/ L 3.5-5. 2 Not Available [facility] ([facility]) [address] [place], [address], 11/07/2016 07:14:11/07/19 17 11/07/2016 CMP, serum or plasm a chloride, serum 102 mmol/ L 96-106 Not Available [facility] ([facility]) [address] [facility] [place], [address], 11/07/2016 07:14:11/07/19 17 11/07/2016 CMP, serum or plasm a calcium, serum 9.8 mg/dL 8.7-10 .2 Not Available [facility] ([facility]) [address] [place], [address], 11/07/2016 07:14:11/07/19 17 11/07/2016 CMP, serum or plasm a protein, total, serum 6.9 g/dL 6.0-8. 5 Not Available [facility] ([facility]) [address] [facility] [place], [address], 11/07/2016 07:14:11/07/19 17 11/07/2016 CMP, serum or plasm a albumin, serum 4.4 g/dL 3.5-5. 5 Not Available [facility] ([facility]) [address] [facility] [place], [address], 11/07/2016 07:14:11/07/19 17 11/07/2016 CMP, serum or plasm a globulin, total 2.5 g/dL 1.5-4. 5 Not Available [facility] ([facility]) [address] [place], [address], 11/07/2016 07:14:11/07/19 17 11/07/2016 CMP, serum or plasm a A/G ratio 1.8 1.2-2. 2 PLE ASE NOTE REFER ENCE INTER MEENA POWELL E Not Available [facility] ([facility]) [address] [facility] [place], [address], 11/07/2016 07:14:11/07/19 17 11/07/2016 CMP, serum or plasm a bilirubin, total 0.4 mg/dL 0.0-1. 2 Not Available [facility] ([facility]) [address] [facility] [place], [address], 11/07/2016 07:14:26 11/07/19 17 11/07/2016 CMP, serum or plasm a alkaline phosphatase, S 59 IU/L 39-117 Not Available [facility] ([facility]) [address] [facility], [place], [address], 11/07/2016 07:14:26 11/07/19 17 11/07/2016 CMP, serum or plasm a AST (SGOT) 18 IU/L 0-40 Not Available [facility] ([facility]) [address] [facility] [place], [address], 11/07/2016 07:14:26 11/07/19 17 11/07/2016 lipid panel , serum cholesterol, total 157 mg/dL 100-19 9 Not Available [facility] ([facility]) [address] [facility], [place], [address], 11/07/2016 07:14:27 11/07/19 17 11/07/2016 lipid panel , serum triglyceride s 89 mg/dL 0-149 Not Available [facility] ([facility]) [address] [facility] [place], [address], 11/07/2016 07:14:27 11/07/19 17 11/07/2016 lipid panel , serum HDL cholesterol 61 mg/dL >39 Not Available [facility] ([facility]) [address] [facility] [place], [address], 11/07/2016 07:14:27 11/07/19 17 11/07/2016 lipid panel , serum VLDL cholesterol giovanny 18 mg/dL 5-40 Not Available [facility] ([facility]) [address] [facility] [place], [address], 11/07/2016 07:14:27 11/07/19 17 11/07/2016 lipid panel , serum LDL cholesterol calc 78 mg/dL 0-99 Not Available [facility] ([facility]) [address] [facility], [place], [address], 11/07/2016 07:14:27 11/07/19 17 11/07/2016 lipid panel , serum comment: WILDLIFE MANAGEMENT PROFESSOR Not Available [facility] ([facility]) [address] [facility], [place], [address], 11/07/2016 07:14:27 11/07/19 17 11/07/2016 lipid panel , serum LDL/HDL ratio 1.3 ratio _unit s 0.0-3. 2 LDL/H DL RATIO MEN WOMEN 1/2 AVG.R ISK 1.0 1.5 AVG.R ISK 3.6 3.2 2X AVG.R ISK 6.2 5.0 3X AVG.R ISK 8.0 6.1 Not Available [facility] ([facility]) [address] [facility], [place], [address], 11/07/2016 07:14:27 11/07/19 17 11/07/2016 cardi ovasc ular asses sment panel , serum interpretati on NOTE SUPPL EMENT REPOR T IS AVAIL ABLE. Not Available [facility] ([facility]) [address] [facility], [place], [address], 11/07/2016 07:14:27 11/07/19 17 11/07/2016 cardi ovasc ular asses sment panel , serum pdf image . Not Available [facility] ([facility]) [address] [facility], [place], [address], 11/07/2016 07:14:27 07/10/20 17 07/08/2017 XR, chest , 2 view No observ ation record ed. [email or web address] [address] , [place], [address], 07/10/2017 14:02:00 Result Notes None recorded. Problems Name Problem SNOMED Code Status Onset Date Resolution Date Notes Provider Name and Address Organization Details Recorded Time Pharyngitis 246332250 Active Dorothy Dia [place] null, [place] - [facility] 6 14:34:23 Impetigo 23576808 Active Dorothy Dia [place] [facility] 6 14:34:23 Multiple lumps 241843951 Active Dorothy D[place] [facility] 6 14:34:23 Cystic acne 86273360 Active Dorothy D[place], [place] [facility] 6 14:34:23 Upper respiratory infection 59237979 Active Dorothy D[place], [place] [facility] 6 14:34:23 Contact dermatitis 71832058 Active Saw Reyes PA-C Attn: Lorelei g,[address] [place], [address], [place] - [facility] 6 15:03:06 Eruption 399121010 Active Saw eRyes PA-C Attn: Accountin g,[address] [place], [address], [place] - [facility] 6 12:15:31 Problem Notes None recorded. Medical Equipment None Reported. Allergies No known drug allergies Medications Name Sig Start Date Stop Date Status Note LastModified by Organization Details LastModified Time Keflex 500 mg capsule Take 1 capsule every 8 hours by oral route as directed for 10 days. 07/11 completed Not Available Not Available Not Available Tamiflu 75 mg capsule Take 1 capsule twice a day by oral route for 5 days. 2016 active Not Available Not Available Not Avai lable omeprazole 40 mg capsule,del ayed release Take 1 capsule every day by oral route for 90 days. 2016 active Not Available Not Available Not Avai lable tramadol 50 mg tablet Take 1 tablet every 8 hours by oral route for 30 days. 07/11 completed Not Available Not Available Not Available Depo-Medrol 80 mg/mL suspension for injection Take 1 mL by injection route. 07/23 completed Not Available Not Available Not Available Tessalon Perles 100 mg capsule Take 1 capsule 3 times a day by oral route for 30 days. 2015 active Not Available Not Available Not Avai lable ceftriaxone 1 gram solution for injection Take 1 g by injection route. 2014 active Not Available Not Available Not Avai lable hydrocortis one 2.5 % topical cream APPLY A THIN LAYER TO THE AFFECTED AREA(S) BY TOPICAL ROUTE 2 TIMES PER DAY 07/23 completed Not Available Not Available Not Available ketorolac 60 mg/2 mL intramuscul ar solution Inject 2 mL by intramusc ular route. 07/11 completed Not Available Not Available Not Available Bactrim DS 800 mg-160 mg tablet Take 1 tablet every 12 hours by oral route for 10 days. 2014 active Not Available Not Available Not Avai lable Vitals Date Recorded Body height Body weight Body mass index (BMI) Oxygen saturation Oxygen saturation in Arterial blood by Pulse oximetry Heart rate Systolic And Diastolic Provider Name and Address Organization Details Last Updated DateTime 7 160.02 cm 84817.5 7 g 25.2 kg/m2 99 % 99 % 84 /min 120/68 mm[Hg] Dang Ga MA [place] - [facility] 7 10:44:13 Date Recorded Body height Body weight Body mass index (BMI) Body temperature Oxygen saturation Oxygen saturation in Arterial blood by Pulse oximetry Heart rate Systolic And Diastolic Provider Name and Address Organization Details Last Updated DateTime 7 160.02 cm 14675.2 2 g 25 kg/m2 98.3 [degF] 98 % 98 % 75 /min 124/72 mm[Hg] Dorothy Dia [place] - [facility] 7 17:12:30 Date Recorded Body height Body mass index (BMI) Body weight Oxygen saturation Oxygen saturation in Arterial blood by Pulse oximetry Heart rate Systolic And Diastolic Provider Name and Address Organization Details Last Updated DateTime 7 160.02 cm 25 kg/m2 46346.5 2 g 99 % 99 % 70 /min 122/74 mm[Hg] Dorothy Dia [place] [facility] 7 12:18:00 Date Recorded Body height Body mass index (BMI) Body weight Oxygen saturation Oxygen saturation in Arterial blood by Pulse oximetry Heart rate Systolic And Diastolic Provider Name and Address Organization Details Last Updated DateTime 7 160.02 cm 24.8 kg/m2 05108.9 3 g 98 % 98 % 85 /min 124/76 mm[Hg] Deepika Champagne MA [facility] 7 11:16:04 Date Recorded Body height Body weight Body mass index (BMI) Systolic And Diastolic Provider Name and Address Organization Details Last Updated DateTime 07/23/2016 160.02 cm 20076.12 g 26.3 kg/m2 118/62 mm[Hg] Saw Reyes PA-C Attn: Accounting, [address] [facility], [place], [address], [facility] 07/23/2016 19:42:27 Social History Question Answer Notes LastModified by Organizat ion Details LastModified Time Tobacco Smoking Status Current Every Day Smoker Jennifer Kumar MA [facility], [facility] 09/16/2014 11:28:37 How Many Years Have You Smoked Tobacco? 6 [email or web address] Information not available 09/16/2014 Sex: Unknown Functional Status None recorded. Mental Status None recorded. Family History Relationship Description Onset Age of this Age Resolved Age Notes LastModified by Organization Details LastModified Time Sister Asthma Not availabl e 10/24/2015 14:34:23 Father Hypertensive disorder [email or web address] Not available 10/09 14:34:23 Mother Malignant neoplasm of ovary [email or web address] Not available 10/09 14:34:23 Medical History Condition Response Coronary Artery Disease N Other N High Blood Pressure N Atrial Fibrillation N Kidney or Bladder Problems N Thyroid Problems N GI Problems N Depression N COPD N Blood Clots N Skin Problems N Anemia N Heart Attack ([place]) N Anxiety Disorder N Diabetes N Muscle, Joint, or Bone Problems N Seizures/Epilepsy N Acid Reflux (GERD) N Cancer N Stroke N Asthma N Allergies N High Cholesterol N Hepatitis N Liver Disease N Headaches N Osteoporosis N Heart Failure N Gynecological HistoryNo gynecological history recorded. Obstetrics History GPAL:G 0 P 0 0 0 0 Past Encounters Encounter ID Performer Location Encounter Start Date Encounter Closed Date Diagnosis/Indication Diagnosis SNOMED-CT Code Diagnosis ICD10 Code Diagnosis IMO Codes Diagnosis Note [id number] CRESCENCIO Malone [facility] [address] [place] [address] 09/16/2014 11:16:29 09/16/2014 12:12:01 Pharyngitis 490338006 [id number] Saw Reyes PA-C [facility] [address] [place] [address] 11/09/2014 11:10:14 11/09/2014 11:41:04 Impetigo 60642217 [facility] [id number] Chris Waite MD [facility] [address] [place] [address] 02/16/2015 15:44:26 02/16/2015 16:30:47 Multiple lumps [id number] Chris Waite MD [facility] [address] [place] [address] 03/02/2015 14:28:02 03/02/2015 14:48:55 Pharyngitis 567453694 Cystic acne 84259753 [id number] Chris Waite MD [facility] [address] [place] [address] 03/27/2015 10:34:10 03/27/2015 11:13:12 Pharyngitis 447911922 [id number] Chris Waite MD [facility] [address] [place] [address] 07/25/2015 15:15:17 07/25/2015 15:50:57 Upper respiratory infection 82054894 J06.9 [id number] Chris Waite MD [facility] [address] [place] [address] 10/02/2015 13:41:54 10/02/2015 14:18:43 Upper respiratory infection 21848718 J06.9 [id number] Saw Reyes PA-C [facility] [address] [place] [address] 10/24/2015 14:26:00 10/24/2015 15:10:45 Contact dermatitis 08625452 L25.9 [id number] Saw Reyes PA-C [facility] [address] [place] [address] 05/01/2016 10:55:25 05/01/2016 12:29:32 Eruption 414425237 R21 [id number] Chris Waite MD [facility] [address] [place] [address] 07/23/2016 19:28:44 07/24/2016 09:20:09 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 [id number] Saw Reyes PA-C [facility] [address] [place] [address] 11/06/2016 10:23:34 11/06/2016 13:34:49 Anxiety 94758547 F41.1 Heart irregular 45942235 6 I49.8 Fatigue 31800363 R53.83 Obstructiv e sleep apnea of adult 0233665764 103 G47.33 [id number] Saw Reyes PA-C [facility] [address] [place] [address] 11/12/2016 16:41:18 11/12/2016 17:52:21 Conduction disorder of the heart 86464576 I45.9 Parotid swelling 7247554 05 K11.9 [id number] Chris Waite MD [facility] [address] [place] [address] 01/27/2017 12:14:43 01/27/2017 12:57:18 Dental abscess 136500460 K04.7 [id number] Saw Reyes PA-C [facility] [address] [place] [address] 07/11/2017 10:52:30 07/11/2017 13:45:45 Atypical chest pain 932004608 R07.89 Gastroesop hageal reflux disease without esophagitis 123773434 K21.9 Health Concerns Section Related Observation LastModified by Organization Detai ls LastModified Time None Recorded Concern Status LastModified by Organization Details LastModified Time None Recorded Advance Directives Directive None Recorded Payers Insurance Date Sequence Insurance Name Policy Number Policy Matute Covered Member ID Matute Member ID Guarantor Name 09/15/2017 1 [place] [facility] Ana Paula Chiang [id number] Ana Paula Chiang 04/27/2017 PAYMENT PLAN Ana Paula Chiang Notes Date Note Type Note Provider Name and Address Organization Details Recorded Time 11/06/2016 text/html ROS as noted in the HPI yearly exam. tired. having weirdness in her chest. pressure. family history of some cardiac. Saw Reyes PA-C Attn: Accounting,[address] [facility], [place], [address], [facility] 11/06/2016 11:07:00 11/12/2016 text/html ROS as noted in the HPI lump on rt jaw line x 2 days heart issues continue. extra beats. Saw Reyes PA-C Attn: Accounting,[address] [facility], [place], [address], [facility] 11/12/2016 17:29:11 01/27/2017 text/html ROS as noted in the HPI rt lower jaw thinks it is infected tooth. began friday. aSw Reyes PA-C Attn: Accounting,[address] [facility], [place], [address], [facility] 01/27/2017 12:49:24 07/11/2017 text/html ROS as noted in the HPI f/u from ER visit re CP. CXR, EKG and lab tests were negative. Said the pain felt like someone crabbing her between the ribs and radiated into her back and caused her to vomit. Has had this pain 4 times before. Denied any N/D. Hx of lap becky 5 years ago. No sx currently. Saw Reyes PA-C Attn: Accounting,[address] [facility], [place], [address], [facility] 07/11/2017 12:42:47 OBGyn Episode No OBEpisode recorded.
[2025-05-28 10:41] LABS: Hematocrit 43.2 % (35.0-49.0); Hemoglobin 14.4 g/dL (12.0-15.0); Immature Granulocyte Percent A 0.4 % (0.0-0.0); Lymphocytes Absolute Auto 1.47 K/mm3 (1.10-4.50); Mean Corpuscular HGB Conc 33.3 g/dL (32-36); Mean Corpuscular Hemoglobin 30.7 pg (27.0-31.0); Mean Corpuscular Volume 92.1 fL (78.0-102.0); Nucleated Red Blood Cells Absolute Auto 0.00 K/mm3 (0.00-0.00); Nucleated Red Blood Cells Perc 0.0 % (0-0.0); Platelet Count Result 280 K/mm3 (150-420); Red Blood Count 4.69 M/mm3 (4.20-5.40); White Blood Count 5.4 K/mm3 (4.8-10.8)
[2025-05-28 13:45] LABS: Alanine Aminotransferase 19 U/L (6-35); Albumin Level 3.8 g/dL (3.5-5.1); Alkaline Phosphatase 66 U/L (38-126); Anion Gap 6 mmol/L (4-12); Aspartate Amino Transferase 30 U/L (14-36); Bilirubin,Total 0.6 mg/dL (0.2-1.3); Blood Urea Nitrogen 7 mg/dL (7-17); Calcium 9.5 mg/dL (8.4-10.2); Carbon Dioxide 26 mmol/L (22-30); Chloride 108 mmol/L (98-107); Cholesterol 154 mg/dL (0-200); Estimated Glomerular Filt Rate > 60; Glucose 93 mg/dL (65-110); HDL Direct 58 mg/dL; Osmolality Calculated 288 mOsm/kg (285-295); Potassium 4.5 mmol/L (3.4-5.0); Sodium 140 mmol/L (137-145); Total Protein 6.7 g/dL (6.3-8.2); Triglycerides 102 mg/dL (<150)
[2025-05-28 14:02] LABS: Free T4 Free Thyroxine 1.05 ng/dL (0.78-2.19)
[2025-05-28 14:16] LABS: Thyroid Stimulating Hormone 1.010 uIU/mL (0.465-4.680)
[2025-05-30 10:55] LABS: Total Triiodothyronine (T3) 1.21
== END 2025-05-28 10:09 | disposition home or self-care (01) ==
LOC: CHSLAB 10:11
PROVIDERS: PCP Family Medicine; Visit Provider Registered Nurse
DX: E55.9 Vitamin D deficiency, unspecified (principal); R53.83 Other fatigue; Z13.220 Encounter for screening for lipoid disorders
CPT/HCPCS: 36415; 80053; 80061; 82306; 82746; 84436; 84439; 84443; 84480; 85025